=== PATIENT | male | born 1975 | race Caucasian/White ===

== ENCOUNTER 2017-07-27 00:46 | Emergency (ER) | payer MEDICARE, OTHER ==
[~2017-07-27] VITALS: Ht 188 cm; Wt 143.8 kg
[~2017-07-27 00:46] MED LIST: BUSPAR10 MG ORAL; GABAPENTIN300 MG ORAL; RISPERDAL1 MG PO
[2017-07-27 01:15] VITALS: BP 109/56
[2017-07-27] MEDS ORDERED: IBUPROFEN800 MG ORAL (01:21)
[2017-07-27 01:28] VITALS: BP 109/56
--- NOTE | 2017-07-27 01:35 | Emergency Room Report ---
History of Present Illness General Chief Complaint: Pain Source: Patient Present Illness HPI 42-year-old male walks in with pain to the inner aspect of proximal left calf Has had for 2 days Patient ambulated with a walker at baseline Denies trauma to leg, denies history of DVT, PE Usually takes Motrin and hasn't taken in a couple weeks Didn't take today History of polycythemia vera - last phlebotomy was in November. Patient states usually he had it monthly but hasn't had to go again because "my mom said my CBC was normal". Denies itch or rash to hot water, denies redness to extremities or skin. Allergies: Coded Allergies: HYDROMORPHONE (Verified Allergy, Unknown, 07/02/11) Patient History Past Medical History: other - the history of present illness Past Surgical History: none Pertinent Family History: none Social History: Denies: smoking, alcohol use, drug use Immunizations: UTD Reviewed Nursing Documentation: PMH: Agreed, PSxH: Agreed Nursing Documentation-PMH Hx Hypertension: Yes - pulmonary HTN Review of Systems All Other Systems: negative except mentioned in HPI Physical Exam Vital Signs Date Time Temp Pulse Resp B/P (MAP) Pulse Ox O2 Delivery O2 Flow Rate FiO2 07/27/17 00:59 98.4 92 16 103/47 92 Room Air Sp02 EP Interpretation: reviewed, normal General Appearance: normal inspection, well appearing, no apparent distress, alert, GCS 15, non-toxic, obese Head: normocephalic, atraumatic Eyes: bilateral eye PERRL, bilateral eye EOMI ENT: normal ENT inspection, hearing grossly normal, normal voice Neck: normal inspection, full range of motion, supple, no bony tend Respiratory: normal inspection, lungs clear, normal breath sounds, no respiratory distress, no retraction, no wheezing Cardiovascular #1: regular rate, rhythm, no edema Gastrointestinal: normal inspection, normal bowel sounds, non tender, soft, no guarding, no hernia Genitourinary: no CVA tenderness Musculoskeletal: normal inspection, back normal, normal range of motion, no calf tenderness, Lindsey's Sign negative, other - bedside sono: compressible veins in popliteal fossa Neurologic: normal inspection, alert, oriented x3, responsive, mortgage loan originator III-XII nml as tested, speech normal Psychiatric: normal inspection, judgement/insight normal, mood/affect normal Skin: normal inspection, normal color, no rash Medical Decision Making Diagnostic Impression: Primary Impression: Pain of left calf ER Course Left calf pain for 2 days atraumatic No DVT on bedside sono done in ER by ER doctor Given Motrin with improvement Rx provided close primary care doctor followup ER course: Patient has remained stable during ED stay. Patient is to be discharged to home. Prescriptions given are motrin Patient is instructed to follow up with their primary care doctor within 5 days. Strict return precautions discussed with patient such as fever, chills, worsening/severe pain, nausea, vomiting, which may indicate severe illness. Patient verbalizes understanding and agrees with plan. Please note that this Emergency Department Report was dictated using [employer] care coordinator technology software, occasionally this can lead to erroneous entry secondary to interpretation by the dictation equipment Last Vital Signs Date Time Temp Pulse Resp B/P (MAP) Pulse Ox O2 Delivery O2 Flow Rate FiO2 07/27/17 01:15 98.4 87 16 109/56 96 Room Air Status: improved Disposition: HOME, SELF-CARE Condition: Improved Scripts Ibuprofen* (MOTRIN*) 800 Mg Tablet 800 MG ORAL THREE TIMES A DAY for leg pain for 7 Days, #30 TAB 0 Refills Prov: TERRI MENCHACA M.D. 07/27/17 Patient Instructions: Musculoskeletal Pain Additional Instructions: - Take ibuprofen up to 3x a day, every 8 hours - Follow up with your doctor in 2-3 days if no improvement in pain TERRI MENCHACA M.D. Jul 27, 2017 01:35
== END 2017-07-27 01:30 | disposition home or self-care (01) ==
LOC: EMR 01:15
DX: M79.662 Pain in left lower leg (principal); I10 Essential (primary) hypertension
CPT/HCPCS: 99283